=== PATIENT | female | born 1980 | race Two or more races ===

== ENCOUNTER 2018-03-09 16:38 | Emergency (ER) | payer MEDICAID, OTHER ==
[~2018-03-09] VITALS: Ht 149.9 cm; Wt 68.0 kg
[2018-03-09 17:09] VITALS: BP 130/76
== END 2018-03-09 18:57 | disposition left against medical advice (07) ==
LOC: ER 16:38
DX: N93.9 Abnormal uterine and vaginal bleeding, unspecified (principal)

== ENCOUNTER 2018-03-19 10:26 | Emergency (ER) | payer MEDICAID ==
[~2018-03-19] VITALS: Ht 149.9 cm; Wt 76.2 kg
[2018-03-19 11:14] LABS: Basophils # (auto) 0 uL; Eosinophils # (auto) 0.1 uL; Eosinophils % (auto) 1.9 % (0.0-7.0); Hemoglobin 8.6 g/dL (12.2-16.2); Mean Corpuscular Hemoglobin 26.1 pg (28.0-32.0); Mean Corpuscular Volume 79.4 fL (80.0-100.0); Monocytes # (auto) 0.3 uL; Platelet Count (auto) 316 10^3/uL (140-450)
[2018-03-19 11:16] LABS: Basophils % (auto) 0.6 % (0.0-2.0); Hematocrit 26.2 % (36.0-46.0); Lymphocytes # (auto) 1.8 uL; Lymphocytes % (auto) 31.9 % (10.0-50.0); Mean Corpuscular Hgb Conc. 32.9 g/dL (32.0-36.0); Monocytes % (auto) 5.2 % (0.0-12.0); Neutrophils # (auto) 3.5 uL; Neutrophils % (auto) 60.4 % (37.0-80.0); Red Blood Cells 3.29 10^6/uL (4.0-5.20); Red Cell Distribution Width 16.9 % (11.8-14.3); White Blood Cell 5.7 10^3/uL (4.4-10.8)
[2018-03-19 11:40] LABS: Albumin 3.4 g/dL (3.4-5.0); BUN/Creatinine Ratio 22.2; Bilirubin, Total 1.1 mg/dL (0.2-1.0); Calcium 8.1 mg/dL (8.5-10.1); Total Protein 6.7 g/dL (6.4-8.2)
[2018-03-19] MEDS ORDERED: SODIUM CHLORIDE 0.9% 1,000 ML IV ONE (18:45)
[2018-03-19 19:45] LABS: Urine Bacteria NONE SEEN /hpf (None Seen); Urine Blood 3+ /uL (Negative); Urine Mucus FEW (None Seen); Urine WBC 7 /hpf (0 - 5)
[2018-03-19 19:46] LABS: INR 0.96 (0.9-1.15); Partial Thromboplastin Time 23.8 sec (23.78-33.04); Prothrombin Time 10.3 sec (9.27-12.13)
[2018-03-19 20:20] VITALS: BP 117/68
== END 2018-03-19 19:55 | disposition home or self-care (01) ==
LOC: ER 10:26
DX: N93.8 Other specified abnormal uterine and vaginal bleeding (principal)
CPT/HCPCS: 36415; 76856; 80053; 81001; 81025; 85025; 85610; 85730; 96360